=== PATIENT | female | born 1975 ===

== ENCOUNTER 2018-05-18 09:06 | Emergency (ER) | payer OTHER ==
[2018-05-18 09:13] VITALS: BP 132/70; PULSE 88; RESP 18; TEMP 98.7; O2SAT 98
[2018-05-18] MEDS ORDERED: Sodium Chloride 0.9% 1,000 ML IV STA (09:47)
[2018-05-18 10:01] LABS: BASO # 0.1 K/uL (0.0-0.2); BASO % 1.1 % (0.0-2.0); EOS # 0.1 K/uL (0.0-0.7); EOS % 0.9 % (0.0-4.0); HEMOGLOBIN 12.4 g/dL (12.0-16.0); LYMPH # 2.7 K/uL (1.0-4.3); LYMPH % 37.2 % (20.0-40.0); MEAN CELL VOLUME 103.8 fl (81.0-99.0); MEAN CORPUSCULAR HEMOGLOBIN 33.3 pg (27.0-31.0); MEAN CORPUSCULAR HGB CONC 32.1 g/dL (33.0-37.0); MEAN PLATELET VOLUME 7.3 fl (7.2-11.7); MONO # 0.6 K/uL (0.0-0.8); MONO % 7.5 % (0.0-10.0); NEUT # 3.9 K/uL (1.8-7.0); NEUT % 53.3 % (50.0-75.0); NRBC % 0.2 % (0.0-0.0); RBC 3.71 Mil/uL (3.80-5.20); RED CELL DISTRIBUTION WIDTH 14.3 % (11.5-14.5); WHITE BLOOD COUNT 7.4 K/uL (4.8-10.8)
--- NOTE | 2018-05-18 10:03 | ED PDOC ---
HPI: Female Pain Time Seen by Provider: 05/18/18 09:16 Chief Complaint (Nursing): Female Genitourinary Additional Complaint(s): 43 yo female patient w/o relevant PMH present to the ED c/o pelvic pain, dysuria and frequency. Patient states sx started 3 months ago, she went to a clinic in [facility] and was prescribed with abx (does not remember the name), she states completed the treatment with some improvement but still having sx. She endorses pain radiated b/l to the flanks, also associated nausea with subjective fever and chills. She denies vomiting, chest pain, palpitations, diarrhea or constipation, no vaginal discharge. Patient states LMP on 07/12/17. Past Medical History Vital Signs: Last Vital Signs Temp 98.7 F 05/18/18 09:12 Pulse 88 05/18/18 09:12 Resp 18 05/18/18 09:12 BP 132/70 05/18/18 09:12 Pulse Ox 98 05/18/18 09:12 - Medical History PMH: No Chronic Diseases - Surgical History Surgical History: - Family History Family History: States: Unknown Family Hx - Social History Current smoker - smoking cessation education provided: No Ex-Smoker (has not smoked in the last 12 months): No Alcohol: None Drugs: Denies - Immunization History Hx Tetanus Toxoid Vaccination: No Hx Influenza Vaccination: No Hx Pneumococcal Vaccination: No - Home Medications Home Medications: Ambulatory Orders Medication Instructions Recorded Ibuprofen [Motrin] 600 mg PO Q8 #30 tab 02/25/18 Ibuprofen [Motrin] 600 mg PO TID 7 Days tab 05/18/18 Nitrofurantoin Macrocrystals 100 mg PO BID #10 cap 05/18/18 [Macrobid] Phenazopyridine [Pyridium] 100 mg PO BID PRN 2 Days tab 05/18/18 - Allergies Allergies/Adverse Reactions: Allergies Allergy/AdvReac Type Severity Reaction Status Date / Time No Known Allergies Allergy Verified 02/25/18 14:04 Physical Exam - Physical Exam Appears: Positive for: No Acute Distress Head Exam: Positive for: NORMAL INSPECTION Eye Exam: Positive for: EOMI Cardiovascular/Chest: Positive for: Regular Rate, Rhythm. Negative for: Tachycardia Respiratory: Positive for: Normal Breath Sounds. Negative for: Rales, Wheezing Gastrointestinal/Abdominal: Positive for: Bowel Sounds, Soft, Tenderness (low abdominal tenderness and bilateral flanks). Negative for: Distended Back: Positive for: L CVA Tenderness, R CVA Tenderness Neurologic/Psych: Positive for: Alert, structural steel equipment erector II-XII, Oriented - Laboratory Results Result Diagrams: 05/18/18 09:58 05/18/18 09:48 - ECG O2 Sat by Pulse Oximetry: 98 - Progress ED Course And Treament: 43 yo female patient with lower abdominal pain, dysuria and frequency, likely 2/2 UTI, r/o Pyelonephritis. Plan: - CBC, CMP - UA, urine cx - Abd/pelvis CT - IV fluids - Toradol 15 mg IV once Reeval: Patient still having pain Morphine 2 mg IV UA positive for UTI CT FINDINGS: LOWER THORAX: Unremarkable. LIVER: Unremarkable. No gross lesion or ductal dilatation. GALLBLADDER AND BILE DUCTS: Unremarkable. PANCREAS: Unremarkable. No gross lesion or ductal dilatation. SPLEEN: Unremarkable. ADRENALS: Unremarkable. No mass. KIDNEYS AND URETERS: Unremarkable. No hydronephrosis. No solid mass. VASCULATURE: Unremarkable. No aortic aneurysm. No aortic atherosclerotic calcification or mural plaque present. BOWEL: Unremarkable. No obstruction. No gross mural thickening. APPENDIX: Normal appendix. PERITONEUM: Unremarkable. No free fluid. No free air. LYMPH NODES: Unremarkable. No enlarged lymph nodes. BLADDER: The bladder wall is diffusely thickened raising suspicion of cystitis. Alternatively, this could be the result of bladder outlet obstruction. Doubt a neoplastic etiology. REPRODUCTIVE: Normal uterus. BONES: No acute fracture. OTHER FINDINGS: None. IMPRESSION: Diffuse thickening of the bladder wall raising suspicion of cystitis. Although there is no perivesical fat stranding, please correlate with urinalysis. Alternatively, this could be the result of chronic bladder outlet obstruction. No other significant abnormality is identified. Disposition - Clinical Impression Clinical Impression: Cystitis, Dysuria, Urinary tract infection - Patient ED Disposition Is Patient to be Admitted: No - Disposition Referrals: [facility] [Outside] Disposition: Routine/Home Disposition Time: 13:24 Condition: STABLE Additional Instructions: f/u with PCP in 2-3 days Instructions: Urinary Tract Infection, Adult (DC) Forms: [facility] (Maltese) Print Language: POLISH
[2018-05-18 10:55] LABS: ALB/GLOB RATIO 1.4 (1.0-2.1); ALBUMIN 4.4 g/dL (3.5-5.0); ALT/SGPT 31 U/L (9-52); AST/SGOT 34 U/L (14-36); BLOOD UREA NITROGEN 22 mg/dl (7-17); CALCIUM 9.8 mg/dL (8.4-10.2); GFR NON-AFRICAN AMERICAN > 60
[2018-05-18] MEDS ORDERED: Iohexol 300 100 ML IJ ONE (11:03)
[2018-05-18] MEDS ORDERED: Sodium Chloride 0.9% 50 ML IV ONE (11:04)
[2018-05-18 12:06] LABS: RENAL EPITHELIAL 2 /hpf (0-3); SQUAMOUS EPITHIAL 9 /hpf (0-5); URINE BACTERIA MOD (<OCC); URINE BILIRUBIN NEGATIVE (NEGATIVE); URINE BLOOD MODERATE (NEGATIVE); URINE CLARITY TURBID (Clear); URINE COLOR YELLOW (YELLOW); URINE GLUCOSE (UA) NEG (Normal); URINE LEUKOCYTE ESTERASE SMALL Leu/uL (Negative); URINE PROTEIN 100 mg/dL (NEGATIVE); WBC CLUMPS OCC /hpf
--- NOTE | 2018-05-18 12:24 | CT ---
Date of service: 2018-05-18 11:05:11 PROCEDURE: CT Abdomen and Pelvis with contrast HISTORY: pain COMPARISON: None. TECHNIQUE: Contrast dose: 95 cc Omnipaque 300 Radiation dose: Total exam DLP = 650.35 mGy-cm. This CT exam was performed using one or more of the following dose reduction techniques: Automated exposure control, adjustment of the mA and/or kV according to patient size, and/or use of iterative reconstruction technique. FINDINGS: LOWER THORAX: Unremarkable. LIVER: Unremarkable. No gross lesion or ductal dilatation. GALLBLADDER AND BILE DUCTS: Unremarkable. PANCREAS: Unremarkable. No gross lesion or ductal dilatation. SPLEEN: Unremarkable. ADRENALS: Unremarkable. No mass. KIDNEYS AND URETERS: Unremarkable. No hydronephrosis. No solid mass. VASCULATURE: Unremarkable. No aortic aneurysm. No aortic atherosclerotic calcification or mural plaque present. BOWEL: Unremarkable. No obstruction. No gross mural thickening. APPENDIX: Normal appendix. PERITONEUM: Unremarkable. No free fluid. No free air. LYMPH NODES: Unremarkable. No enlarged lymph nodes. BLADDER: The bladder wall is diffusely thickened raising suspicion of cystitis. Alternatively, this could be the result of bladder outlet obstruction. Doubt a neoplastic etiology. REPRODUCTIVE: Normal uterus. BONES: No acute fracture. OTHER FINDINGS: None. IMPRESSION: Diffuse thickening of the bladder wall raising suspicion of cystitis. Although there is no perivesical fat stranding, please correlate with urinalysis. Alternatively, this could be the result of chronic bladder outlet obstruction. No other significant abnormality is identified.
[2018-05-18] MEDS ORDERED: Morphine 4 MG/ML VIAL IV ONE (12:53)
== END 2018-05-18 13:37 | disposition home or self-care (01) ==
LOC: H.ER 09:06
DX: N30.90 Cystitis, unspecified without hematuria (principal); R30.0 Dysuria; N39.0 Urinary tract infection, site not specified; Z87.891 Personal history of nicotine dependence
CPT/HCPCS: 74177; 80053; 81003; 81025; 85025; 87086; 96361; 96374; 96375; 99284; J1885; J2270; J7030; Q9967